=== PATIENT | female | born 1995 | race Hispanic/Latino ===

== ENCOUNTER 2018-06-01 19:48 | Emergency (ER) | payer BC, SELFPAY ==
--- NOTE | 2018-06-01 21:55 | ER ---
Nurse's Notes [facility] Name: Lesvia Perla Age: 22 yrs Sex: Female : 1995 Arrival Date: 06/01/2018 Time: 20:01 Bed 12 Private MD: Diagnosis: Insect bite (nonvenomous) of ankle Presentation: 06/01 20:13 Presenting complaint: Patient states: I have an insect bite or something on my right la1 ankle and it is getting more red and swollen since I noticed it. Transition of care: patient was not received from another setting of care. Onset of symptoms was June 01, 2018. Risk Assessment: Do you want to hurt yourself or someone else? Patient reports no desire to harm self or others. Initial Sepsis Screen: Does the patient meet any 2 criteria? No. Patient's initial sepsis screen is negative. Does the patient have a suspected source of infection? No. Patient's initial sepsis screen is negative. Care prior to arrival: None. 20:13 Method Of Arrival: Ambulatory la1 20:13 Acuity: ADAM 4 la1 Triage Assessment: 21:57 Bite description: bite sustained to left medial ankle is superficial, from insect by an unknown animal, animal information: vaccination(s) is not applicable. Historical: - Allergies: 20:14 No Known Allergies; la1 - PMHx: 20:14 Asthma; la1 - PSHx: 20:14 None; la1 - Immunization history:: Adult Immunizations up to date. - Social history:: Smoking status: Patient uses tobacco products, denies chronic smoking, but will smoke occasionally. - Ebola Screening: : No symptoms or risks identified at this time. Screenin:20 Abuse screen: Denies threats or abuse. Nutritional screening: No deficits noted. fc Tuberculosis screening: No symptoms or risk factors identified. Fall Risk None identified. Assessment: 21:20 General: Appears comfortable, slender, Behavior is calm, cooperative, appropriate for fc age. Pain: Denies pain. Neuro: Level of Consciousness is awake, alert, obeys commands, Oriented to person, place, time, situation, Appropriate for age. Cardiovascular: No deficits noted. Respiratory: No deficits noted. GI: No deficits noted. : No deficits noted. EENT: No deficits noted. Derm: Skin is intact, Skin is dry, Skin is pink, Skin temperature is warm. Musculoskeletal: Circulation, motion, and sensation intact. Capillary refill < 3 seconds, Range of motion: intact in all extremities, Swelling present in left inner ankle. 21:54 Reassessment: Omer GRIER in to see and examine pt. fc Vital Signs: 20:14 BP 110 / 70; Pulse 89; Resp 16; Temp 97.8; Pulse Ox 98% on R/A; Weight 48.99 kg; Height la1 4 ft. 11 in. (149.86 cm); 20:14 Body Mass Index 21.81 (48.99 kg, 149.86 cm) la1 ED Course: 20:01 Patient arrived in ED. am2 20:14 Triage completed. la1 20:15 Arm band placed on left wrist. la1 21:20 Patient has correct armband on for positive identification. Call light in reach. fc 21:20 No provider procedures requiring assistance completed. Patient did not have IV access fc during this emergency room visit. 21:51 Omer Milner NP is PHCP. pm1 21:51 Ariel Miranda MD is Attending Physician. pm1 Administered Medications: No medications were administered Outcome: 21:55 Discharge ordered by MD. pm1 21:57 Discharged to home ambulatory, with friend. fc 21:57 Condition: good 21:57 Discharge instructions given to patient, friend, Instructed on discharge instructions, follow up and referral plans. medication usage, Demonstrated understanding of instructions, follow-up care, medications, Prescriptions given X 1. 22:00 Patient left the ED. Signatures: Brionna Zuniga RN RN Donato Singh RN RN [facility] Omer Milner NP SENIOR MECHANICAL TECHNICIAN pm1 Tessa Iraheta am
--- NOTE | 2018-06-01 21:56 | EDPHYS ---
Physician Documentation [facility] Name: Lesvia Perla Age: 22 yrs Sex: Female : 1995 Arrival Date: 06/01/2018 Time: 20:01 Bed 12 Private MD: ED Physician Ariel Miranda HPI: 06/01 21:50 This 22 yrs old Female presents to ER via Ambulatory with complaints of Insect pm1 Bite. 21:50 The patient was bitten on the left medial ankle. Onset: The symptoms/episode pm1 began/occurred last night. Animal information: possibly mosquito. Secondary to the bite the patient reports pain, swelling. Associated signs and symptoms: Pertinent negatives: bony tenderness, fever, motor deficit, numbness distal to wound, suspected foreign body. Severity of symptoms: in the emergency department the symptoms have improved, with benadryl. The patient has not experienced similar symptoms in the past. The patient has not recently seen a physician, and does not have an established primary care provider. Historical: - Allergies: 20:14 No Known Allergies; la1 - PMHx: 20:14 Asthma; la1 - PSHx: 20:14 None; la1 - Immunization history:: Adult Immunizations up to date. - Social history:: Smoking status: Patient uses tobacco products, denies chronic smoking, but will smoke occasionally. - Ebola Screening: : No symptoms or risks identified at this time. ROS: 21:50 Constitutional: Negative for fever, chills, and weight loss, Eyes: Negative for injury, pm1 pain, redness, and discharge, ENT: Negative for injury, pain, and discharge, Neck: Negative for injury, pain, and swelling, Cardiovascular: Negative for chest pain, palpitations, and edema, Respiratory: Negative for shortness of breath, cough, wheezing, and pleuritic chest pain, Abdomen/GI: Negative for abdominal pain, nausea, vomiting, diarrhea, and constipation, Back: Negative for injury and pain, : Negative for injury, bleeding, discharge, and swelling, MS/Extremity: Negative for injury and deformity. 21:50 Neuro: Negative for headache, weakness, numbness, tingling, and seizure. 21:50 Skin: Positive for swelling, of the left medial ankle. Exam: 21:50 Constitutional: This is a well developed, well nourished patient who is awake, alert, pm1 and in no acute distress. Head/Face: Normocephalic, atraumatic. Chest/axilla: Normal chest wall appearance and motion. Nontender with no deformity. No lesions are appreciated. Cardiovascular: Regular rate and rhythm with a normal S1 and S2. No gallops, murmurs, or rubs. Normal PMI, no JVD. No pulse deficits. Respiratory: Lungs have equal breath sounds bilaterally, clear to auscultation and percussion. No rales, rhonchi or wheezes noted. No increased work of breathing, no retractions or nasal flaring. Back: No spinal tenderness. No costovertebral tenderness. Full range of motion. 21:50 Skin: Appearance: normal except for affected area, swelling, noted on the left medial ankle, that are mild. 21:50 Neuro: Orientation: is normal, Motor: moves all fours. Vital Signs: 20:14 BP 110 / 70; Pulse 89; Resp 16; Temp 97.8; Pulse Ox 98% on R/A; Weight 48.99 kg; Height la1 4 ft. 11 in. (149.86 cm); 20:14 Body Mass Index 21.81 (48.99 kg, 149.86 cm) la1 MDM: 21:50 Patient medically screened. snw 21:54 Data reviewed: vital signs. Data interpreted: Pulse oximetry: on room air is 98 %. pm1 Interpretation: normal. Counseling: I had a detailed discussion with the patient and/or guardian regarding: the historical points, exam findings, and any diagnostic results supporting the discharge/admit diagnosis, the need for outpatient follow up, to return to the emergency department if symptoms worsen or persist or if there are any questions or concerns that arise at home. Administered Medications: No medications were administered Disposition: 06/02 02:25 Co-signature as Attending Physician, Ariel Miranda MD. pkl Disposition: 06/01/18 21:55 Discharged to Home. Impression: Insect bite (nonvenomous) of ankle. - Condition is Stable. - Discharge Instructions: Insect Bite. - Prescriptions for Bactrim DS 800- 160 mg Oral Tablet - take 1 tablet by ORAL route every 12 hours for 10 days; 20 tablet. - Medication Reconciliation Form, Thank You Letter, Antibiotic Education form. - Follow up: Emergency Department; When: As needed; Reason: Worsening of condition. Follow up: Private Physician; When: 2 - 3 days; Reason: Recheck today's complaints, Continuance of care, Re-evaluation by your physician. - Problem is new. - Symptoms have improved. Signatures: Ariel Miranda MD MD pkl Therrien, Shelly, PODODERMATOLOGIST-C PODODERMATOLOGIST-Csnw Brionna Zuniga, RN RN fc Donato Singh RN RN la1 Omer Milner, CAREER PORTALS TEACHER CAREER PORTALS TEACHER pm1 Corrections: (The following items were deleted from the chart) 06/01 22:00 21:55 06/01/2018 21:55 Discharged to Home. Impression: Insect bite (nonvenomous) of fc ankle. Condition is Stable. Forms are Medication Reconciliation Form, Thank You Letter, Antibiotic Education, Prescription Opioid Use. Follow up: Emergency Department; When: As needed; Reason: Worsening of condition. Follow up: Private Physician; When: 2 - 3 days; Reason: Recheck today's complaints, Continuance of care, Re-evaluation by your physician. Problem is new. Symptoms have improved. pm1
== END 2018-06-01 22:00 | disposition home or self-care (01) ==
LOC: ER 19:48
DX: S90.562A Insect bite (nonvenomous), left ankle, initial encounter (principal); W57.XXXA Bitten or stung by nonvenomous insect and other nonvenomous arthropods, initial encounter; Z72.0 Tobacco use
CPT/HCPCS: 99282

== ENCOUNTER 2024-05-10 16:41 | Emergency (ER) | payer OTHER ==
--- OUTSIDE RECORDS SUMMARY | 2024-05-10 16:44 | XMS REPORT | Continuity of Care Document ---
Author Name Unknown Address [address] [place] [address] [facility] thconnect Address [address] [place] [address] Care Team Providers Care Final Inspector And Tester Name Role Phone Ned Lara Attending Clinician Unavailable Provider, [facility] Attending Clinician Un available Verna Gu Attending Clinician [phone] VERNA TRACY Attending Clinician Unavailable Doctor Unassigned, [place] Attending Clinician U navailable Pcp, Patient Does Not Have A Attending Clinician Payers Payer Name Policy Type Policy Number Effective Date Expirati on Date Source [facility] [id number] 2013 00:00:00 Problems Condition Name Condition Details Condition Category Status Onset Date Resolution Date Last Treatment Date Treating Clinician Comments Source No known active problems No known active problems Disease [facility] Allergies, Adverse Reactions, Alerts Allergy Name Allergy Type Status Severity Reaction(s) Onset Date Inactive Date Treating Clinician Comments Source NO KNOWN ALLERGIE S Drug Class Active [facility] Social History Social Habit Start Date Stop Date Quantity Comments Source Sex Assigned At [facility] Exposure to SARS-CoV-2 (event) Not sure [facility] Tobacco use and exposure 2020-05-07 00:00:00 2020-05-07 00:00:00 Never used [facility] Smoking Status Start Date Stop Date Source Never smoker [facility] Medications Ordered Medication Name Filled Medication Name Start Date Stop Date Current Medication? Ordering Clinician Indication Dosage Frequency Signature (SIG) Comments Components Source XULANE 150-35 mcg/24 hr patch 2019-06 00:00: 00 Yes APPLY ONE (1) PATCH(ES) TO SKIN WEEKLY. [facility] No known medications No Un tory [facility] Vital Signs Vital Name Observation Time Observation Value Comments S ource Systolic blood pressure 2020-05-07 15:51:00 103 mm[Hg] [facility] Diastolic blood pressure 2020-05-07 15:51:00 66 mm[Hg] [facility] Heart rate 2020-05-07 15:51:00 81 /min [facility] Body temperature 2020-05-07 15:51:00 37 Katheryn [facility] Respiratory rate 2020-05-07 15:51:00 16 /min [facility] Body height 2020-05-07 15:51:00 149.9 cm [facility] Body weight 2020-05-07 15:51:00 49.442 kg [facility] BMI 2020-05-07 15:51:00 22.02 kg/m2 [facility] Oxygen saturation in Arterial blood by Pulse oximetry 2020-05-07 15:51:00 98 /min [facility] Procedures Procedure Date / Time Performed Performing Clinicia n Source POCT GRP A STREP (MOLECULAR) 2020-05-07 15:59:00 Verna Tracy [facility] Encounters Start Date/Time End Date/Time Encounter Type Admission Type Attending Clinicians Care Facility Care Department Encounter ID Source 2024-02-28 11:42:00 [facility] [id number] [facility] 2024-02-21 12:52:00 Out[facility] L[facility], [facility] [id number] [facility] 2024-02-20 10:04:00 Outpatient L[facility], [facility] [id number] [facility] 2024-01-31 13:16:00 Outpatient Lara, [facility] [id number] [facility] 2023-08-26 15:39:00 Outpatient Lara, On [facility] [id number] [facility] 2023-07-23 10:46:01 Outpatient Lara, [facility] [id number] [facility] 2022-10-22 14:06:01 Outpatient Lara, [facility] [id number] [facility] 2022-04-27 10:25:03 Outpatient Lara, [facility] [id number] [facility] 2022-04-26 13:57:28 Outpatient Lara, [facility] [id number] [facility] 2022-04-10 08:22:04 Outpatient Lara, [facility] [id number] [facility] 2022-04-09 13:12:02 Outpatient Lara, [facility] [id number] [facility] 2020-05-07 09:40:37 2020-05-07 10:22:58 Urgent Care Provider, [facility] Olman [facility] [address] .[id number] [facility] 2020-05-07 09:40:00 2020-05-07 09:40:00 Outpatient R VERNA TRACY [facility] [id number] [facility] 2020-05-07 00:00:00 2020-05-07 00:00:00 Letter (Out) Doctor Unassigned, [place]ale[place] [facility] [id number] [facility] 2020-05-07 00:00:00 2020-05-07 00:00:00 Letter (Out) Pcp, Patient Does Not Have A [facility] [address] ..[id number] [facility] Results Test Description Test Time Test Comments Results Result Co mments Source [facility]
--- NOTE | 2024-05-10 18:40 | RAD REPORT ---
EXAMINATION: TWO VIEW CHEST XR CLINICAL INDICATION: COUGH TECHNIQUE: 2 views of the chest was performed. COMPARISON: No prior exam. FINDINGS: Mild linear opacities in the left base may represent subtle infiltrate/developing pneumonia. The hear t is normal in size. No displaced fractures evident.
[2024-05-10] MEDS ORDERED: IPRATROPIUM BROM 0.5MG/2.5ML ONE (18:50)
[2024-05-10] MEDS ORDERED: CEFTRIAXONE 1000 MG/VIAL ONE (18:50)
[2024-05-10] MEDS ORDERED: METHYLPREDNISOLONE 125 MG INJ ONE (18:50)
[2024-05-10] MEDS ORDERED: predniSONE 20 MG TAB ONE (18:51)
[2024-05-10] MEDS ORDERED: AZITHROMYCIN 250 MG TAB ONE (18:51)
[2024-05-10] MEDS ORDERED: NA CHLORIDE 0.9% 50 ML ONE (18:51)
[2024-05-10] MEDS ORDERED: NA CHLORIDE 0.9% 1,000 ML ONE (18:51)
[2024-05-10] MEDS ORDERED: LEVALBUTEROL 1.25 MG/3 ML NEB ONE ×2 (18:51→19:49)
[2024-05-10 19:06] LABS: Albumin 3.4 g/dL (3.4-5.0); Albumin/Globulin Ratio 0.9 (1.1-1.8); Alkaline Phosphatase 83 U/L (45-117); Anion Gap 8.5 mEq/L (5.0-15.0); BUN Blood Urea Nitrogen 9 mg/dL (7-18); Bicarbonate 24 mEq/L (21-32); Bilirubin Total 0.3 mg/dL (0.2-1.0); Globulin 3.9 g/dL (2.3-3.5); Glomerular Filtration Rate 119 ml/min (=/>90); Glucose Level 101 mg/dL (74-106); Potassium 3.5 mEq/L (3.5-5.1); Protein, Total 7.3 g/dL (6.4-8.2); Sodium Level 137 mEq/L (136-145)
[2024-05-10 19:12] LABS: ALT/SGPT < 14 U/L (13-56); AST/SGOT < 10 U/L (15-37)
[2024-05-10 19:21] LABS: Absolute Basophils 0.1 K/uL (0-0.5); Absolute Eosinophils 0.6 K/uL (0-0.5); Absolute Lymphocytes (CBC) 1.7 K/uL (0.7-4.9); Absolute Monocytes 0.8 K/uL (0.1-1.3); Absolute Neutrophil 7.1 K/uL (1.8-8.0); Basophils % 0.8 % (0-1.3); Eosinophils % 5.7 % (0-4.4); Hematocrit 36.2 % (36.0-45.0); Hemoglobin 12.4 g/dL (12.0-15.0); Lymphocytes % 16.8 % (15.3-44.8); MCH 32.2 pg (27.0-35.0); MCHC 34.3 g/dL (32.0-36.0); MCV 93.9 fL (80-100); MPV 9.6 fL (7.6-11.3); Monocytes % 7.7 % (3.3-12.3); Nucleated Red Blood Cells % 0.1 % (0-0); Platelets 271 thou/uL (152-406); RBC Red Blood Cell Count 3.86 M/uL (3.86-4.86); Red Cell Distribution Width 12.8 % (12.1-15.2)
[2024-05-10 19:25] LABS: SARS-CoV-2 Antigen CONTROL BLUE LINE VIS/BG OK; SARS-CoV-2 Antigen Rapid Res Negative (Negative)
[2024-05-10 19:30] LABS: Specific Gravity 1.023 (1.005-1.030); Sqamous Epithelial <5 /HPF (None Seen); Urine Bacteria <20 /HPF (<20); Urine Bilirubin NEGATIVE (Negative); Urine Blood 1+ (Negative); Urine Clarity Turbid (Clear); Urine Color Light-Yellow (Yellow); Urine Culture Reflex Order NOT NEEDED; Urine Glucose NEGATIVE (Negative); Urine Ketones NEGATIVE (Negative); Urine Microscopic Reflex YN ORDER UMIC; Urine Mucus Slight /HPF (None Seen); Urine Nitrite NEGATIVE (Negative); Urine Protein NEGATIVE (Negative); Urine Urobilinogen Normal (Normal); Urine WBC <5 /HPF (<5); Urine pH 6.5 (5.0-7.0)
--- NOTE | 2024-05-10 19:37 | EDPHYS ---
Physician Documentation [facility] Name: Lesvia Perla Age: 28 yrs Sex: Female : 1995 Arrival Date: 05/10/2024 Time: 16:41 Bed 19 Private MD: ED Physician Vahe Chisholm HPI: 05/10 18:37 This 28 yrs old Female presents to ER via Ambulatory with complaints of Cough, karl Congestion, Asthma Exacerbation, Shortness Of Breath. 18:37 The patient or guardian reports cough, that is intermittent, difficulty breathing, flu karl symptoms, arthralgias, low-grade fever, myalgias. Onset: The symptoms/episode began/occurred 2 day(s) ago. Severity of symptoms: At their worst the symptoms were mild, moderate, in the emergency department the symptoms are unchanged. Associated signs and symptoms: The patient has no apparent associated signs or symptoms. The patient has experienced similar episodes in the past, several times. Historical: - Allergies: 18:12 No Known Allergies; ss - PMHx: 18:12 Asthma; ss - PSHx: 18:12 None; ss - Immunization history:: Adult Immunizations unknown. - Infectious Disease History:: Denies. - Family history:: not pertinent. - Social history:: Smoking status: Patient denies any tobacco usage or history of. ROS: 18:37 Constitutional: Negative for fever, chills, and weight loss, Eyes: Negative for injury, karl pain, redness, and discharge, ENT: Negative for injury, pain, and discharge, Neck: Negative for injury, pain, and swelling, Cardiovascular: Negative for chest pain, palpitations, and edema, Abdomen/GI: Negative for abdominal pain, nausea, vomiting, diarrhea, and constipation, Back: Negative for injury and pain, : Negative for injury, bleeding, discharge, and swelling, MS/Extremity: Negative for injury and deformity, Skin: Negative for injury, rash, and discoloration, Neuro: Negative for headache, weakness, numbness, tingling, and seizure, Psych: Negative for depression, anxiety, suicide ideation, homicidal ideation, and hallucinations, Allergy/Immunology: Negative for hives, rash, and allergies, Endocrine: Negative for neck swelling, polydipsia, polyuria, polyphagia, and marked weight changes, Hematologic/Lymphatic: Negative for swollen nodes, abnormal bleeding, and unusual bruising, 18:37 Respiratory: Positive for cough, shortness of breath, wheezing, expiratory, Exam: 18:37 Constitutional: This is a well developed, well nourished patient who is awake, alert, karl and in no acute distress. Head/Face: Normocephalic, atraumatic. Eyes: Pupils equal round and reactive to light, extra-ocular motions intact. Lids and lashes normal. Conjunctiva and sclera are non-icteric and not injected. Cornea within normal limits. Periorbital areas with no swelling, redness, or edema. ENT: Nares patent. No nasal discharge, no septal abnormalities noted. Tympanic membranes are normal and external auditory canals are clear. Oropharynx with no redness, swelling, or masses, exudates, or evidence of obstruction, uvula midline. Mucous membranes moist. Neck: Trachea midline, no thyromegaly or masses palpated, and no cervical lymphadenopathy. Supple, full range of motion without nuchal rigidity, or vertebral point tenderness. No Meningismus. Chest/axilla: Normal chest wall appearance and motion. Nontender with no deformity. No lesions are appreciated. Cardiovascular: Regular rate and rhythm with a normal S1 and S2. No gallops, murmurs, or rubs. Normal PMI, no JVD. No pulse deficits. Abdomen/GI: Soft, non-tender, with normal bowel sounds. No distension or tympany. No guarding or rebound. No evidence of tenderness throughout. Back: No spinal tenderness. No costovertebral tenderness. Full range of motion. Skin: Warm, dry with normal turgor. Normal color with no rashes, no lesions, and no evidence of cellulitis. MS/ Extremity: Pulses equal, no cyanosis. Neurovascular intact. Full, normal range of motion., bilateral aka Neuro: Awake and alert, GCS 15, oriented to person, place, time, and situation. Cranial nerves II-XII grossly intact. Motor strength 5/5 in all extremities. Sensory grossly intact. Cerebellar exam normal. Normal gait. Psych: Awake, alert, with orientation to person, place and time. Behavior, mood, and affect are within normal limits. 18:37 Respiratory: the patient does not display signs of respiratory distress, Respirations: normal, no acute changes, that is mild is noted, Breath sounds: bronchial sounds, that are mild, are scattered, decreased breath sounds, that are mild, are scattered, rhonchi, that are mild, are scattered, stridor, is not appreciated, + upper airway congestion. wheezing: expiratory is scattered, Vital Signs: 18:00 BP 105 / 74; Pulse 81; Resp 16; Pulse Ox 98% ; db 18:00 BP 100 / 68; Pulse 86; Resp 18; Temp 97.7(O); Pulse Ox 100% on R/A; Weight 54.43 kg; ss Height 4 ft. 11 in. ; Pain 4/10; 18:46 BP 119 / 82; Pulse 84; Resp 18; Pulse Ox 100% ; db 18:00 Body Mass Index 24.24 (54.43 kg, 149.86 cm) ss 18:00 Pain Scale: Adult ss MDM: 17:04 Medical Screening Exam initiated karl 18:40 Differential Diagnosis: Obstructed Airway Bronchitis Influenza Upper Respiratory karl Infection Sinusitis Pharyngitis Otitis Media Asthma Exacerbation Viral Syndrome Pneumonia. Data reviewed: vital signs, nurses notes, lab test result(s), radiologic studies, plain films. Consideration of Admission/Observation Escalation of care including admission/observation considered. I considered the following discharge prescriptions or medication management in the emergency department Medications were administered in the Emergency Department. See MAR. Independent interpretation of the following test(s) in the Emergency Department X-Ray: My interpretation is CXR. Test considered but Not performed: CT: NO CT CHEST. Historians other than the Patient: Spouse/Significant Other: SPOUSE WELL INFORMED. Care significantly affected by the following chronic conditions: ASTHMA. Counseling: I had a detailed discussion with the patient and/or guardian regarding the historical points, exam findings, and any diagnostic results supporting the discharge/admit diagnosis, lab results, radiology results, the need for outpatient follow up, for definitive care, a family practitioner, a family consumer science teacher. 05/10 17:05 Order name: CBC with Diff; Complete Time: 19:36 [facility] 05/10 17:05 Order name: Comprehensive Metabolic Panel; Complete Time: 19:20 [facility] 05/10 17:05 Order name: Urinalysis w/ reflexes; Complete Time: 19:36 [facility] 05/10 17:05 Order name: PREGU [facility] 05/10 17:05 Order name: Flu; Complete Time: 19:36 [facility] 05/10 17:05 Order name: SARS RAPID; Complete Time: 19:36 [facility] 05/10 17:05 Order name: Chest Pa And Lat (2 Views) XRAY; Complete Time: 18:42 karl Administered Medications: 09:45 Drug: Levalbuterol Inhalation 1.25 mg Inhalation once Route: Inhalation; rg5 18:50 Drug: NS 0.9% IV 1000 ml IV at 1000 ml once; to be given as a bolus over 60 minutes db Route: IV; Rate: 1000 ml; Site: right antecubital; 18:50 Drug: MethylPrednisoLONE IVP 125 mg IVP once Route: IVP; Site: right antecubital; db 18:50 Drug: predniSONE PO 60 mg PO once Route: PO; db 18:50 Drug: Levalbuterol Inhalation 3.75 mg Inhalation once Route: Inhalation; db 18:50 Drug: Ipratropium Inhalation Aerosol 0.5 mg Inhalation once Route: Inhalation; db 18:50 Drug: Rocephin IV 1 grams IV at per protocol once; Given slow IV push per pharmacy db instructions Route: IV; Rate: per protocol; Site: right antecubital; 18:50 Drug: AZITHromycin PO 500 mg PO once Route: PO; db Disposition Summary: 05/10/24 19:37 Discharge Ordered Notes: Location: Home karl Problem: new karl Symptoms: have improved karl Condition: Stable karl Diagnosis - Mild persistent asthma with (acute) exacerbation karl - Acute upper respiratory infection, unspecified karl - Cough karl Followup: karl - With: Private Physician - When: 2 - 3 days - Reason: Recheck today's complaints, Continuance of care, Re-evaluation by your physician Followup: karl - With: Ned Lara DO - When: 2 - 3 days - Reason: Recheck today's complaints, Re-evaluation by your physician Followup: karl - With: Clifford Coy MD - When: 2 - 3 days - Reason: Recheck today's complaints, Re-evaluation by your physician Discharge Instructions: - Discharge Summary Sheet karl - Asthma, Adult karl - How to Use a Metered Dose Inhaler karl - Upper Respiratory Infection, Adult karl - Cool Mist Vaporizer karl - Upper Respiratory Infection, Adult, [id number] karl - Cough, Adult, [id number] karl - How to Use a Nebulizer, Adult karl - Cough, Adult karl Forms: - Medication Reconciliation Form karl - Antibiotic Education karl - Prescription Opioid Use karl - Patient Portal Instructions [facility] - Leadership Thank You Letter [facility] Prescriptions: - albuterol sulfate 90 mcg/actuation Inhalation HFA Aerosol Inhaler - inhale 2 puff INHALATION route every 4 to 6 hours; 1 unit; Refills: 0, Product karl Selection Permitted - Tessalon Perles 100 mg Oral capsule - take 2 capsule ORAL route every 8 hours As needed; 30 capsule; Refills: 0, [facility] Product Selection Permitted - Albuterol Sulfate 2.5 mg /3 mL (0.083 %) Inhalation Solution for Nebulization - inhale 1 unit NEBULIZATION route every 4-6 hours As needed; 36 unit; Refills: karl 0, Product Selection Permitted - Prednisone 20 mg Oral Tablet - take 2 tablets ORAL route once daily for 5 days; 10 tablet; Refills: 0, Product [facility] Selection Permitted - Zithromax 500 mg Oral Tablet - take 1 tablet ORAL route once daily for 5 days; 5 tablet; Refills: 0, Product karl Selection Permitted Signatures: Dispatcher [employer] EDMS Vahe Chisholm MD MD cha Blanchard, Shelby, RN RN ss Marleny Ferrara RN RN db Garfield Baca RN RN rg5 Corrections: (The following items were deleted from the chart) 17:06 17:06 CBC+H.LAB.BRZ ordered. EDGA EDMS 17: 17:06 COMPREHENSIVE METABOLIC PANEL+C.LAB.BRZ ordered. EDGA EDMS 17: 17:06 Urinalysis+U.LAB.BRZ ordered. EDGA EDGA 17: 17:06 Test, Urine+UC.LAB.BRZ ordered. EDGA EDGA 17: 17:06 Chest Pa And Lat (2 Views)+RAD.RAD.BRZ ordered. EDGA EDMS 17: 17:06 Influenza Screen (A \T\ B)+BA.LAB.BRZ ordered. EDGA EDMS 17: 17:06 SARS-COV-2 Antigen Rapid+I.LAB.BRZ ordered. EDGA EDMS
--- NOTE | 2024-05-10 19:37 | ER ---
Nurse's Notes [facility] Name: Lesvia Perla Age: 28 yrs Sex: Female : 1995 Arrival Date: 05/10/2024 Time: 16:41 Bed 19 Private MD: Diagnosis: Mild persistent asthma with (acute) exacerbation;Acute upper respiratory infection, unspecified;Cough Presentation: 05/10 18:00 Chief complaint: Patient states: cough, congestion and sob x 2 days. HX of asthma. ss Inhaler not helping. Coronavirus screen: Client denies travel out of the [place] in the last 14 days. Ebola Screen: Patient denies exposure to infectious person. Patient denies travel to an Ebola-affected area in the 21 days before illness onset. Initial Sepsis Screen: Does the patient meet any 2 criteria? No. Patient's initial sepsis screen is negative. Does the patient have a suspected source of infection? No. Patient's initial sepsis screen is negative. Risk Assessment: Do you want to hurt yourself or someone else? Patient reports no desire to harm self or others. Onset of symptoms was May 08, 2024. 18:00 Method Of Arrival: Ambulatory ss 18:00 Acuity: ADAM 3 ss Historical: - Allergies: 18:12 No Known Allergies; ss - PMHx: 18:12 Asthma; ss - PSHx: 18:12 None; ss - Immunization history:: Adult Immunizations unknown. - Infectious Disease History:: Denies. - Family history:: not pertinent. - Social history:: Smoking status: Patient denies any tobacco usage or history of. Screenin:50 [facility] ED Fall Risk Assessment (Adult) History of falling in the last 3 months, db including since admission No falls in past 3 months (0 pts) Confusion or Disorientation No (0 pts) Intoxicated or Sedated No (0 pts) Impaired Gait No (0 pts) Mobility Assist Device Used No (0 pt) Altered Elimination No (0 pt) Score/Fall Risk Level 0 - 2 = Low Risk Oriented to surroundings, Maintained a safe environment. Abuse screen: Denies threats or abuse. Denies injuries from another. Nutritional screening: No deficits noted. Tuberculosis screening: No symptoms or risk factors identified. Assessment: 18:46 Reassessment: Patient appears in no apparent distress at this time. Patient and/or db family updated on plan of care and expected duration. Pain level reassessed. Patient is alert, oriented x 3, equal unlabored respirations, skin warm/dry/pink. COUGH AND ASTHMA SYMPTOMS. General: Appears in no apparent distress. comfortable, Behavior is calm, cooperative. Pain: Complains of pain in chest. Neuro: Level of Consciousness is awake, alert, obeys commands, Oriented to person, place, time, situation, Appropriate for age. Respiratory: Airway is patent Respiratory effort is even, unlabored, Respiratory pattern is regular, symmetrical. 18:50 Cardiovascular: No deficits noted. Capillary refill < 3 seconds Patient's skin is warm db and dry. Respiratory: Breath sounds are clear bilaterally. Vital Signs: 18:00 BP 105 / 74; Pulse 81; Resp 16; Pulse Ox 98% ; db 18:00 BP 100 / 68; Pulse 86; Resp 18; Temp 97.7(O); Pulse Ox 100% on R/A; Weight 54.43 kg; ss Height 4 ft. 11 in. ; Pain 4/10; 18:46 BP 119 / 82; Pulse 84; Resp 18; Pulse Ox 100% ; db 18:00 Body Mass Index 24.24 (54.43 kg, 149.86 cm) ss 18:00 Pain Scale: Adult ss ED Course: 16:44 Patient arrived in ED. im 17:03 Vahe Chisholm MD is Attending Physician. karl 18:10 Marleny Ferrara, RN is Primary Nurse. db 18:12 Triage completed. ss 18:12 Arm band placed on right wrist. ss 18:31 Chest Pa And Lat (2 Views) XRAY In Process Unspecified. EDMS 18:42 Initial lab(s) drawn, by me, sent to lab. COVID swab sent to lab. Flu and/or RSV swab db sent to lab. Inserted saline lock: 20 gauge in right antecubital area, using aseptic technique. Blood collected. Flushed with 10 mL NS. 18:45 SARS RAPID Sent. db 18:45 Flu Sent. db 18:50 Patient has correct armband on for positive identification. Bed in low position. Call db light in reach. Side rails up X 1. Pulse ox on. NIBP on. Pillow given. 18:59 Urine collected:. db 19:37 Ned Lara DO is Referral Physician. karl 19:37 Clifford Coy MD is Referral Physician. karl 19:48 Garfield Baca, RN is Primary Nurse. rg5 Administered Medications: 09:45 Drug: Levalbuterol Inhalation 1.25 mg Inhalation once Route: Inhalation; rg5 18:50 Drug: NS 0.9% IV 1000 ml IV at 1000 ml once; to be given as a bolus over 60 minutes db Route: IV; Rate: 1000 ml; Site: right antecubital; 18:50 Drug: MethylPrednisoLONE IVP 125 mg IVP once Route: IVP; Site: right antecubital; db 18:50 Drug: predniSONE PO 60 mg PO once Route: PO; db 18:50 Drug: Levalbuterol Inhalation 3.75 mg Inhalation once Route: Inhalation; db 18:50 Drug: Ipratropium Inhalation Aerosol 0.5 mg Inhalation once Route: Inhalation; db 18:50 Drug: Rocephin IV 1 grams IV at per protocol once; Given slow IV push per pharmacy db instructions Route: IV; Rate: per protocol; Site: right antecubital; 18:50 Drug: AZITHromycin PO 500 mg PO once Route: PO; db Medication: 18:50 VIS not applicable for this client. db Outcome: 19:37 Discharge ordered by . karl 20:14 Patient left the ED. rg5 Signatures: Dispatcher [employer] EDMS Vahe Chisholm MD MD cha Blanchard, Shelby, RN RN Marleny Stinson RN RN Gina Quinn Rommel, RN RN rg5
[2024-05-10 19:52] LABS: Specific Gravity 1.023 (1.005-1.030)
[2024-05-10 22:48] VITALS: TEMP 97.7; O2SAT 100
[2024-05-10 22:53] VITALS: BP 119/82
== END 2024-05-10 20:14 | disposition home or self-care (01) ==
LOC: ER 16:41 → MERGE 16:41 → ER 20:14
DX: J45.31 Mild persistent asthma with (acute) exacerbation (principal); J06.9 Acute upper respiratory infection, unspecified; Z11.52 Encounter for screening for COVID-19
CPT/HCPCS: 85025; 81001; 36415; 81025; 80053; 87804 ×2; 71046; 96375; 96374; 99285; 87811; J7512; J7614 ×2; J7644; J2919; J7030; J0696